=== PATIENT | male | born 1970 | race Caucasian/White ===

== ENCOUNTER → 2018-01-30 | Outpatient (CLI) | payer OTHER | END | disposition home or self-care (01) | LOC: PNCL 09:05 | DX: M48.061 Spinal stenosis, lumbar region without neurogenic claudication (principal); M51.36 Other intervertebral disc degeneration, lumbar region; M79.604 Pain in right leg; M79.605 Pain in left leg; F17.210 Nicotine dependence, cigarettes, uncomplicated | CPT/HCPCS: 99214 ==

== ENCOUNTER → 2018-02-15 | Outpatient (CLI) | payer OTHER ==
[~2018-02-15] MED LIST: IOHEXOL 180 MG/ML 10 ML VIAL.; LIDOCAINE 1% PF 2 ML VIAL.; methylPREDNISolone ACETATE 40 MG/ML VIAL.; methylPREDNISolone ACETATE 80 MG/ML VIAL.
== END | disposition home or self-care (01) ==
LOC: PNCL 10:10
DX: M51.16 Intervertebral disc disorders with radiculopathy, lumbar region (principal); Z88.0 Allergy status to penicillin
CPT/HCPCS: 62323; J1030; J1040; Q9965

== ENCOUNTER → 2018-03-06 | Outpatient (CLI) | payer OTHER | LOC: PNCL 14:08 | DX: M51.16 Intervertebral disc disorders with radiculopathy, lumbar region (principal); M54.5 Low back pain | CPT/HCPCS: 62323; J1030; J1040; Q9965 ==

== ENCOUNTER → 2018-03-20 | Outpatient (CLI) | payer OTHER | LOC: PNCL 13:46 | DX: M51.16 Intervertebral disc disorders with radiculopathy, lumbar region (principal); M48.061 Spinal stenosis, lumbar region without neurogenic claudication; Z88.0 Allergy status to penicillin; F17.210 Nicotine dependence, cigarettes, uncomplicated; Z79.899 Other long term (current) drug therapy | CPT/HCPCS: 62323; J1030; J1040; Q9965 ==

== ENCOUNTER → 2018-04-24 | Outpatient (CLI) | payer OTHER ==
[~2018-04-24] MED LIST changes: +CYCL10TA2 PO; +GABA-585 PO; -IOHEXOL 180 MG/ML 10 ML VIAL.; -LIDOCAINE 1% PF 2 ML VIAL.; +METH-37 PO; -methylPREDNISolone ACETATE 40 MG/ML VIAL.; -methylPREDNISolone ACETATE 80 MG/ML VIAL.
--- NOTE | 2018-04-24 15:48 | PAIN ---
DATE OF SERVICE: 04/24/2018 DIAGNOSES: Lumbar radiculopathy with lumbar degenerative disk disease and lumbar and lumbosacral spondylosis. HISTORY OF PRESENT ILLNESS: The patient is a 47-year-old male who returns for followup status post lumbar epidural steroid injections x 3 with about overall 50% improvement. The patient reports still significant pain; however, in the low back itself. The patient reports pain in his lower extremities now is resolved fairly significantly and he has been quite pleased with his progress thus far, but the pain in his back persists. The patient did have an element of spondylosis in the lumbar spine as well. We discussed this on his last visit. The patient reports that he is doing quite well, though he is increasing his activity with greater ease and comfort, working activities as well as household activities and recreational activities. He has been doing some stretching and strengthening exercises and exercises on a regular basis. The patient reports the pain now is in the low back itself fairly localized and without radiation to the lower extremities. It is aching, dull, shooting, constant, radiating to the hips occasionally, but mostly in the low back itself, worse with extension of the spine, better with forward flexion. The patient reports pain is 6 on a scale of 10 at its worst, 5 on average, 1 at its least, is a 5 today. The patient reports no new motor or sensory deficits. He is sleeping well at night. It does not bother him when he is off his feet or lying down. PHYSICAL EXAMINATION: VITAL SIGNS: The patient's blood pressure 130/87, pulse 78, respirations 18, temperature is 98.2 degrees Fahrenheit, height is 5 feet 9 inches and weight is 185 pounds. GENERAL: The patient is awake, alert, oriented, appropriate, very pleasant demeanor. HEENT: Head is normocephalic, atraumatic. Extraocular movements are intact, symmetrical. The patient wears eyeglasses. Oral cavity: Mucous membranes moist and pink. Dentition is intact. NECK: Shows anterior throat supple without palpable lymphadenopathy noted. Swallow reflex is symmetrical. CHEST: Shows normal on inspection. Breath sounds clear to auscultation bilaterally. HEART: Shows S1, S2 clear. ABDOMEN: Soft, nontender, nondistended. BACK: Shows spine grossly in the midline. Normal appearing thoracic kyphosis and lumbar lordotic curvature. Lumbar paraspinous musculature shows symmetrical on inspection, on palpation some mild tenderness, but only diffusely with palpation bilaterally. The patient has good rotational motion both laterally greater than 10 degrees, right and left as well as extension greater than 10 degrees with some moderate tenderness with extension and axial loading of the lumbar facets, which is fairly significant. The patient decreases the pain with forward flexion at 45 degrees, which is performed without significant difficulty. EXTREMITIES: Lower extremities show deep tendon reflexes at 2+ in the patellar, 1+ tendo calcaneus tendons. Motor exam is strong with 5/5 dorsiflexion, extension, quadriceps and hamstring flexion. Peripheral pulses are 1+ posterior tibial. Options were discussed with the patient. The patient's old chart was reviewed as his current medication regimen and updated. Current review of systems is updated today as well and we will proceed with preauthorization for bilateral lumbar facet joint injections at L4-L5 and L5-S1 as the patient has significant axial loading pain consistent with lumbar facet syndrome bilaterally. The patient will continue to do exercises, strengthening and stretching and maintain his normal exercise routine in the meantime as tolerated and we will wait for preauthorization and have him return for bilateral L4-L5 and L5-S1 facet joint injections. TAMANNA DUMAS MD DR: ZULMA/cruzito JOB#: [id number] / [id number]
== END | disposition home or self-care (01) ==
LOC: PNCL 07:50
PROVIDERS: ATTEND Anesthesiology
DX: M51.16 Intervertebral disc disorders with radiculopathy, lumbar region (principal); M47.897 Other spondylosis, lumbosacral region; F17.210 Nicotine dependence, cigarettes, uncomplicated; Z88.0 Allergy status to penicillin; Z79.899 Other long term (current) drug therapy
CPT/HCPCS: 99212

== ENCOUNTER → 2018-10-14 | Outpatient (CLI) | payer OTHER ==
[~2018-10-14] MED LIST changes: +IOHEXOL 180 MG/ML 10 ML VIAL. ONE; +methylPREDNISolone ACETATE 40 MG/ML VIAL. ONE; +methylPREDNISolone ACETATE 80 MG/ML VIAL. ONE
--- NOTE | 2018-10-14 23:13 | PN ---
DATE: 10/14/2018 PROGRESS NOTE FOR PAIN CLINIC DIAGNOSES: Lumbar degenerative disk disease with lumbar and lumbosacral spondylosis. The patient is a 48-year-old male who returns for followup status post bilateral L4-L5 and L5-S1 facet joint injections on 05/06/2018. The patient did very well with about 90% improvement initially, now still about 50% improvement overall in the low back. The patient reports pain is returning, however in the back itself, worse with extension of the lumbar spine, better with forward flexion, right and left lateral rotation showed some mild tenderness. The patient reports it is worse with walking, standing, changing positions, initially he was doing all of these much better and more easily for about 2 months. The patient reports that the pain is now 6 on a scale of 10 at its worst, 5 on average, 2 at its least and is a 5 today. The patient reports no new motor or sensory deficits, no new bowel or bladder incontinence or other complaints, still has some pain in the mid upper back and reports he has recently [facility], will try and get a report of this as we have no access to this currently. The patient reports otherwise doing well. No new changes. PHYSICAL EXAMINATION: VITAL SIGNS: The patient's blood pressure 146/86, pulse 91, respirations 18, temperature 98.3 degrees Fahrenheit, height is 5 feet 9 inches, weighs 190 pounds. GENERAL: The patient is awake, alert, oriented, appropriate, very pleasant demeanor. HEENT: Head is normocephalic, atraumatic. Extraocular muscles are intact and symmetrical. Oral cavity, mucous membranes are moist and pink. Dentition is intact. NECK: Shows anterior throat supple without palpable lymphadenopathy noted. Swallow reflex is symmetrical. CHEST: Shows normal with inspection. Breath sounds are clear to auscultation bilaterally. HEART: Shows S1, S2 clear. No murmurs auscultated. ABDOMEN: Soft, nontender, nondistended. No palpable organomegaly is noted. No rebound or guarding demonstrated. BACK: Shows spine grossly in the midline. Normal appearing thoracic kyphosis and lumbar lordotic curvature. Lumbar paraspinous muscle shows symmetrical on inspection. Palpation shows some moderate tenderness, but only diffusely without radiation. The patient has good rotational motion of lumbar spine, both laterally greater than 10 degrees right and left with some mild tenderness involved, but only mildly so. The patient's extension of the lumbar spine, however, causes significant tenderness to the point the patient does not want to perform this. Forward flexion is better with decreased pain at 45 degrees without significant disability. EXTREMITIES: The patient's lower extremities show deep tendon reflexes at 2+ in the patellar, 1+ tendo-calcaneus tendons. Motor exam is strong with 5/5 dorsiflexion, extension, quadriceps and hamstring flexion equal and symmetrical. Peripheral pulses are 1+ posterior tibia. No peripheral edema is noted bilaterally. Options were discussed with the patient. The patient's old chart was reviewed. His current medication regimen updated. Current review of systems updated today as well and we will preauthorize the patient for bilateral L4-L5 and L5-S1 facet joint injections as he has done very well with these in the past, again pain is increasing with axial loading of the lumbar spine with extension, better with forward flexion without significant radiation to the lower extremities at this time. The patient will return to clinic in approximately 1 week. We will plan on lumbar bilateral facet joint injections at L4-L5 and L5-S1 levels. He has done very well with these in the past. TAMANNA DUMAS MD DR: ZULMA/cruzito JOB#: [id number] / [id number]
== END | disposition home or self-care (01) ==
LOC: PNCL 11:29
PROVIDERS: ATTEND Anesthesiology
DX: M51.36 Other intervertebral disc degeneration, lumbar region (principal); M47.896 Other spondylosis, lumbar region
CPT/HCPCS: G0463; J1030; J1040; Q9965

== ENCOUNTER → 2018-10-18 | Outpatient (CLI) | payer OTHER ==
[~2018-10-18] MED LIST changes: +BUPIVACAINE MPF 0.25% 10 ML VIAL. ONE
--- NOTE | 2018-10-18 22:15 | PAIN ---
DATE OF SERVICE: 10/18/2018 DIAGNOSES: Lumbar degenerative disk disease, lumbar and lumbosacral spondylosis. HISTORY OF PRESENT ILLNESS: The patient is a 48-year-old male who returns for followup status post lumbar L4-L5 and L5-S1 facet joint injections with very good results in the past, about 90% improvement for the first month following the injections. The patient returns now after preauthorization for additional injections reporting still significant pain in the low back bilaterally, right equal left, essentially worse with standing, walking, sitting for prolonged periods with doing exercise, especially sit ups and running activities. The patient reports the pain is aching, sharp, shooting, becoming more constant, more noticeable in the low back itself. No radiation to the lower extremities at this time. The patient rates his pain is a 6 on a scale 10 at its worst, 5 on average and a 2 at its worst, is a 5 today. The patient reports no new motor or sensory deficits. Feels better with sitting or lying down for short periods of time and does not awaken him from sleep currently. PHYSICAL EXAMINATION: VITAL SIGNS: The patient's blood pressure 118/88, pulse 101, respirations 18, temperature 92.9 degrees Fahrenheit, height is 5 feet 9 inches, weighs 186 pounds. GENERAL: The patient is awake, alert, oriented, appropriate, very pleasant demeanor. HEENT: Shows normocephalic, atraumatic. Extraocular movements are intact and symmetrical. Oral cavity: Mucous membranes moist and pink. Dentition is intact. NECK: Shows anterior throat supple without palpable lymphadenopathy noted. Swallow reflex symmetrical. CHEST: Shows normal on inspection. Breath sounds are clear to auscultation bilaterally. HEART: Shows S1, S2 clear. No murmurs auscultated. ABDOMEN: Soft, nontender, nondistended. No palpable organomegaly is noted. No rebound or guarding demonstrated. BACK: Shows spine grossly in the midline. Normal appearing thoracic kyphosis and lumbar lordotic curvature. Lumbar paraspinous muscle shows symmetrical on inspection. With palpation shows some moderate tenderness diffusely, but without atrophy, hypertrophy, no radiation. The patient has good rotational motion with some moderate tenderness with extension in the low back and not with forward flexion. Lateral rotation shows very mild tenderness in right and left respectively with rotation each direction of the lumbar spine. EXTREMITIES: Lower extremities show deep tendon reflexes 2+ in the patellar, 1+ tendo calcaneus tendons. Motor exam is strong with 5/5 dorsiflexion, extension, quadriceps and hamstring flexion and equal bilaterally. Peripheral pulses are 1+ posterior tibia. No peripheral edema is noted. Options were discussed with the patient. The patient's old chart was reviewed as was his current medication regimen updated. Current review of systems is updated today as well. We will proceed with bilateral L4-L5 and L5-S1 facet joint injections today with fluoroscopic guidance. Risks were again discussed including, but not limited to bleeding, infection, possibility of epidural hematoma and subsequent neurological compromise, dural puncture, headaches, spinal cord and/or nerve damage, side effects of steroid medication and poor results regarding pain control. The patient understands and wished to proceed. The patient will return to the clinic in approximately 2 weeks for followup, was counseled on return appointment, activity level and side effects to be aware of. DIAGNOSIS: Lumbar and lumbosacral spondylosis bilaterally. PROCEDURES: Bilateral L4-L5 and L5-S1 facet joint injections using C-arm fluoroscopic guidance under sterile prep and drape using local anesthetic. MEDICATION INJECTED: A total of 120 mg Depo-Medrol plus total of 4 mL of 0.25% bupivacaine, a total of 2 mL of Isovue for contrast. CONDITION AT DISCHARGE: Stable. The patient tolerated the procedure well, had no complications. TAMANNA DUMAS MD DR: ZULMA/cruzito JOB#: [id number] / [id number]
== END | disposition home or self-care (01) ==
LOC: PNCL 11:24
PROVIDERS: ATTEND Anesthesiology
DX: M47.817 Spondylosis without myelopathy or radiculopathy, lumbosacral region (principal); M51.36 Other intervertebral disc degeneration, lumbar region; Z88.0 Allergy status to penicillin
CPT/HCPCS: 64493; 64494; J1030; J1040; J3490; Q9965

== ENCOUNTER → 2019-04-09 | Outpatient (CLI) | payer OTHER ==
--- NOTE | 2019-04-09 21:48 | PAIN ---
DATE OF SERVICE: 04/09/2019 PROGRESS NOTE FOR PAIN CLINIC DIAGNOSES: Lumbar radiculopathy with lumbar degenerative disk disease and lumbar and lumbosacral spondylosis. HISTORY OF PRESENT ILLNESS: The patient is a 48-year-old male who returns for followup status post bilateral lumbar facet injections, L4-L5 and L5-S1, last seen 10/18/2018. The patient reports he did very well with about a 90% improvement, but the pain began to return after the past month or so. The patient was increased distance walking, doing work activities, household activities and traveling with greater ease and comfort. The patient reports he has been sleeping better at night, does not awaken her from sleep at night. The patient reports his pain in the last week has been about 8 on a scale of 10 at its worst, 6 on average, 3 at its least and is a 6 today. The patient reports an intermittent pain in the lower legs as well, but the main complaint is low back with pain across the low back, but not radiating significantly into the lower extremities at this time. The patient reports it is tingling and sharp, constant, radiating across the low back. The patient reports no new motor or sensory deficits, no new bowel or bladder incontinence or other complaints. PHYSICAL EXAMINATION: VITAL SIGNS: The patient's blood pressure 140/87, pulse 107, respirations 16, temperature 98.1 degrees Fahrenheit, weight is 190 pounds. GENERAL: The patient is awake, alert, oriented, appropriate, very pleasant demeanor. HEENT: Shows normocephalic, atraumatic. Extraocular movements are intact and symmetrical. The patient is wearing eyeglasses. Extraocular movements are intact and symmetrical. Oral cavity: Mucous membranes moist and pink. Dentition is intact. NECK: Shows anterior throat supple without palpable lymphadenopathy noted. Swallow reflex symmetrical. CHEST: Shows normal on inspection. Breath sounds clear to auscultation bilaterally. HEART: Shows S1, S2 clear. No murmurs auscultated. ABDOMEN: Soft, nontender, nondistended. No palpable organomegaly is noted. No rebound or guarding demonstrated. BACK: Shows spine grossly in the midline. Normal appearing thoracic kyphosis and some minor flattening of lumbar lordotic curvature. Lumbar paraspinous muscle shows symmetrical on inspection. On palpation, shows some moderate tenderness diffusely, but only diffusely without radiation. The patient has good rotational motion with some moderate tenderness with right and left lateral rotation greater than 10 degrees, but with extension and axial loading of the lumbar spine shows significant pain in the lumbar spine itself without radiation. This is better and relieved to some extent with forward flexion at 45 degrees, which is performed without difficulty. EXTREMITIES: The patient's lower extremities show deep tendon reflexes 2+ in the patellar, 1+ tendo-calcaneus tendons. Motor exam is 5/5 with dorsiflexion, extension, quadriceps and hamstring flexion equal. Peripheral pulses are 1+ posterior tibia. No peripheral edema is noted. Options were discussed with the patient. The patient's old chart was reviewed as his current medication regimen updated. Current review of systems updated today as well. We will proceed with bilateral L4-L5 and L5-S1 facet joint injections using C-arm fluoroscopic guidance. Risks were again discussed including, but not limited to bleeding, infection, possibility of epidural hematoma, subsequent neurological compromise, dural puncture, headaches, spinal cord and/or nerve damage, side effects of steroid medication and poor results regarding pain control. The patient understands and wished to proceed. The patient will return to clinic in approximately 2 weeks for followup. He was counseled on return appointment, activity level and side effects to be aware of. DIAGNOSES: Lumbar degenerative disk disease and lumbar spondylosis and lumbosacral spondylosis. PROCEDURE: Lumbar L4-L5 and L5-S1 bilateral facet joint injections using C-arm fluoroscopic guidance under sterile prep and drape using local anesthetic. MEDICATION INJECTED: A total of 120 mg Depo-Medrol plus 4 mL of 0.25% bupivacaine and 2 mL of contrast. CONDITION AT DISCHARGE: Stable. The patient tolerated procedure well, had no complications. TAMANNA DUMAS MD DR: ZULMA/cruzito JOB#: [id number] / [id number]
== END ==
LOC: PNCL 13:14
PROVIDERS: ATTEND Anesthesiology
DX: M47.817 Spondylosis without myelopathy or radiculopathy, lumbosacral region (principal); M51.16 Intervertebral disc disorders with radiculopathy, lumbar region
CPT/HCPCS: 64493; 64494; J1030; J1040; J3490; Q9965

== ENCOUNTER → 2019-05-12 | Outpatient (CLI) | payer OTHER ==
--- NOTE | 2019-05-13 00:18 | PAIN ---
DATE OF SERVICE: 05/12/2019 PROGRESS NOTE FOR PAIN CLINIC DIAGNOSES: Lumbar radiculopathy with lumbar degenerative disk disease and lumbar spondylosis. HISTORY OF PRESENT ILLNESS: The patient is a 48-year-old male who returns for followup status post bilateral facet joint injections, most recently seen on 04/09. He did very well with about 85% improvement, although it did not last as long as it usually does. Reports he was very active after the last injections in the next day or two, has been traveling on airplane for a long period of time and reports the pain is still improved, but not as much as usual. The patient reports the pain is in the low back bilaterally, worse with extension of the lumbar spine, standing, walking, changing positions, awakens him from sleep about every 6-7 hours. The patient reports the pain is a 6 on a scale of 10 at its worst, 5 on average, 2 at its least and is a 5 today. The patient reports it is aching, constant, radiating across the low back, but not into the lower extremities. The patient reports no new motor or sensory deficits, no new bowel or bladder incontinence or other complaints. PHYSICAL EXAMINATION: VITAL SIGNS: The patient's blood pressure is 145/88, pulse 96, respirations 16, temperature 98.0 degrees Fahrenheit, weight is 186 pounds. GENERAL: The patient is awake, alert, oriented, appropriate, very pleasant demeanor. HEENT: Head shows normocephalic, atraumatic. Extraocular movements are intact and symmetrical. Oral cavity: Mucous membranes are moist and pink. Dentition is intact. NECK: Shows anterior throat supple without palpable lymphadenopathy noted. Swallow reflex symmetrical. CHEST: Shows normal on inspection. Breath sounds clear to auscultation bilaterally. HEART: Shows S1, S2 clear. No murmurs auscultated. ABDOMEN: Soft, nontender, nondistended. No palpable organomegaly is noted. No rebound or guarding demonstrated. BACK: Shows spine grossly in the midline. The patient's spinous process show no significant tenderness with palpation, but with rotational motion, the patient does show some moderate tenderness bilaterally with lateral rotation greater than 10 degrees right and left as well as extension is significantly greater than 10 degrees but decreased with forward flexion at 45 degrees plus the patellar. EXTREMITIES: Lower extremities show deep tendon reflexes 2+ at the patellar and 1+ tendo-calcaneus tendons are equal. Motor exam is strong with 5/5 dorsiflexion, extension, quadriceps and hamstring flexion and symmetrical. Peripheral pulses are 1+ posterior tibia. No peripheral edema is noted. PLAN: Options were discussed with the patient. The patient's old chart was reviewed as his current medication regimen updated. Current review of systems updated. We will proceed with bilateral L4-L5 and L5-S1 facet joint injections today with fluoroscopic guidance. Risks were discussed including but not limited to bleeding, infection, possibility of epidural hematoma, subsequent neurological compromise, dural puncture, headaches, spinal cord and/or nerve damage, side effects of steroid medication and poor results regarding pain control. The patient understands and wished to proceed. The patient will return to the clinic in approximately 2 weeks for followup. He was counseled as to return appointment, activity level and side effects to be aware of. DIAGNOSIS: Lumbar and lumbosacral spondylosis. PROCEDURE: Lumbar bilateral L4-L5 and L5-S1 facet joint injections using C-arm fluoroscopic guidance under sterile prep and drape using local anesthetic. MEDICATION INJECTED: The patient received a total of 120 mg Depo-Medrol plus total of 4 mL of 0.5% bupivacaine and total of 2 mL of contrast. CONDITION AT DISCHARGE: Stable. The patient tolerated the procedure and had no complications. TAMANNA DUMAS MD DR: ZULMA/cruzito JOB#: [id number] / [id number]
== END ==
LOC: PNCL 14:18
PROVIDERS: ATTEND Anesthesiology
DX: M51.16 Intervertebral disc disorders with radiculopathy, lumbar region (principal); M47.816 Spondylosis without myelopathy or radiculopathy, lumbar region
CPT/HCPCS: 64493; 64494; J1030; J1040; J3490; Q9965

== ENCOUNTER → 2019-12-31 | Outpatient (CLI) | payer OTHER ==
[~2019-12-31] MED LIST changes: -BUPIVACAINE MPF 0.25% 10 ML VIAL. ONE
--- NOTE | 2019-12-31 10:50 | PAIN ---
DATE OF SERVICE: PROGRESS NOTE FOR PAIN CLINIC DIAGNOSES: 1. Lumbar radiculopathy with lumbar degenerative disk disease, lumbar and lumbosacral spondylosis. 2. T7 transverse fracture with thoracic radiculopathy. HISTORY OF PRESENT ILLNESS: The patient is a 49-year-old male who returns for followup status post lumbar facet joint injections, last seen on 05/12/2019. The patient reports he was doing quite well, but fell in July of last year when he was getting ready to get on an airplane, fell on some ice, fell on his left side, had some significant fractures of the left side of the ribs as well as T7 transverse process fracture. The patient reports that he has not had any formal physical therapy since that time as there has been immobility significantly, but is healed for the most part but has significant pain throughout the entire thoracic distribution of the spine and in the lumbar spine as well. The patient rates his pain as 8 on a scale of 10 at its worst over the past week, 5 on average, 3 at its least and is a 5 today. The patient reports it is aching, radiating tight as well as a shooting and burning and stabbing, cramping at times. The patient reports it is better with sitting or lying down; does not awaken him from sleep at night; worse with activity, rotation motion of the lumbar and thoracic spines, extension and flexion, reaching over his head with his arms, and driving a car. The patient reports no new motor or sensory deficits, no bowel or bladder incontinence. PHYSICAL EXAMINATION: VITAL SIGNS: The patient's blood pressure 145/87, pulse 84, respirations 18, temperature 98.6 degrees Fahrenheit, height is 5 feet 9 inches and weight is 197 pounds. GENERAL: The patient is awake, alert, oriented, appropriate, very pleasant demeanor. HEENT: Head shows normocephalic, atraumatic. Extraocular movements are intact and symmetrical. Oral cavity shows mucous membranes moist and pink. Dentition is intact. NECK: Shows anterior throat supple without palpable lymphadenopathy noted. Swallow reflex symmetrical. CHEST: Shows normal on inspection. Breath sounds are clear bilaterally. HEART: Shows S1, S2 clear. No murmurs auscultated. ABDOMEN: Soft, nontender, nondistended. BACK: Shows spine grossly in the midline, normal-appearing cervical lordotic curvature, thoracic kyphotic curvature and lumbar lordotic curvature is slightly flattened. Paraspinous musculature throughout the upper, middle and lower distribution, thoracic paraspinous muscles as well as the upper, middle and lower distribution of the lumbar paraspinous muscles are very firm, very tender even to light touch. The patient withdraws from examining hand and very, very tender bilaterally with some trigger points as well throughout the thoracic and lumbar distributions bilaterally with tender with palpation bilaterally. The patient shows good rotational motion of the thoracic and lumbar spine with some moderate tenderness with extension as well he has left greater than right rotation in the thoracic distribution, but less pain in the lumbar distribution with rotation. EXTREMITIES: The patient's lower extremities show deep tendon reflexes at 2+ in the patellar, 1+ in the tendo-calcaneus tendons. Motor exam is strong with 5/5 dorsiflexion, extension, quadriceps and hamstring flexion. Upper extremities show deep tendon reflexes 2+ biceps and triceps. Announcer strength, bicep and tricep flexion are 5/5 and equal. Peripheral pulses are 2+ radial. Options were discussed with the patient. The patient's old chart was reviewed as his current medication regimen updated. Current review of systems updated today as well and we will proceed with a thoracic epidural steroid injection today with fluoroscopic guidance. Risks were again discussed including, but not limited to bleeding, infection, possibility of epidural hematoma, subsequent neurological compromise, dural puncture, headaches, spinal cord and/or nerve damage, side effects of steroid medication and poor results regarding pain control. The patient understands and wished to proceed. The patient will return to clinic in approximately 2 weeks for followup. She was counseled on return appointment, activity level and side effects to be aware of. DIAGNOSIS: Thoracic radiculopathy. PROCEDURE: Thoracic epidural steroid injection, translaminar approach T7-T8 level using C-arm fluoroscopic guidance under sterile prep and drape using local anesthetic. MEDICATION INJECTED: A total of 120 mg Depo-Medrol plus 10 mL preservative-free normal saline and 2 mL of contrast. CONDITION AT DISCHARGE: Stable. The patient tolerated procedure well, had no complications. The patient also had physical therapy ordered as he is active and [place] we will see if we can give orders for this and he will follow up once these are initiated. TAMANNA DUMAS MD DR: Benita JOB#: [id number] / [id number]
== END | disposition home or self-care (01) ==
LOC: PNCL 09:05
PROVIDERS: ATTEND Anesthesiology
DX: M54.14 Radiculopathy, thoracic region (principal); M51.06 Intervertebral disc disorders with myelopathy, lumbar region; Z98.890 Other specified postprocedural states; Z88.0 Allergy status to penicillin
CPT/HCPCS: 62321; J1030; J1040; Q9965

== ENCOUNTER → 2020-01-14 | Outpatient (CLI) | payer OTHER ==
[~2020-01-14] MED LIST changes: -IOHEXOL 180 MG/ML 10 ML VIAL. ONE; -methylPREDNISolone ACETATE 40 MG/ML VIAL. ONE; -methylPREDNISolone ACETATE 80 MG/ML VIAL. ONE
--- NOTE | 2020-01-14 11:26 | PAIN ---
DATE OF SERVICE: 01/14/2020 PROGRESS NOTE FOR PAIN CLINIC DIAGNOSES: 1. Lumbar radiculopathy with lumbar degenerative disk disease, lumbar and lumbosacral spondylosis. 2. Thoracic radiculopathy with T7 transverse fracture. HISTORY OF PRESENT ILLNESS: The patient is a 49-year-old male who returns for followup status post thoracic epidural steroid injection 12/31/2019. The patient here for his thoracic radiculopathy. The patient reports he did very well with about 40% improvement, still some twitching and spasticity in the area of the mid upper back, but much better than it was. The patient reports no new motor or sensory deficits. The patient reports his main complaint is low back pain, worse with standing, walking, changing positions, sitting for prolonged periods, extension of the lumbar spine and axial loading of the low back. The patient reports it is aching and shooting at times and constant. The patient reports it is a 7 on a scale of 10 at its worst, 5 on average, 3 at its least over the past week and is a 5 today. The patient reports no new motor or sensory deficits, better with sitting or lying down, but only for short periods, sitting for prolonged periods, greater than an hour or so, it does aggravate the pain in the back. No specific radiation to lower extremities at this time. The patient reports it does not awaken her from sleep at night. He is sleeping about 8 hours at a time without significant difficulty. The patient reports no new motor or sensory deficits, no new bowel or bladder incontinence or other complaints, but still taking gabapentin as well as cyclobenzaprine with good decrease in pain with each of these. We discussed increasing the gabapentin to 200 mg as he is only taking 100 at bedtime to see if this may afford some better pain relief as well. The patient reports no other major problems or conditions or concerns at this time. PHYSICAL EXAMINATION: VITAL SIGNS: The patient's blood pressure is 171/77, pulse 82, respirations are 18, temperature is 98.0 degrees Fahrenheit, height is 5 feet 9 inches, weight is 196 pounds. GENERAL: The patient is awake, alert, oriented, appropriate, very pleasant demeanor. HEENT: Shows normocephalic, atraumatic. Extraocular movements are intact and symmetrical. Oral cavity, mucous membranes are moist and pink. Dentition is intact. NECK: Shows anterior throat supple without palpable lymphadenopathy noted. Swallow reflex symmetrical. CHEST: Shows normal on inspection. Breath sounds are clear bilaterally. HEART: Shows S1, S2 clear. No murmurs auscultated. ABDOMEN: Soft, nontender, nondistended. No palpable organomegaly is noted. No rebound or guarding demonstrated. BACK: Shows spine grossly midline. Normal appearing thoracic kyphosis and lumbar lordotic curvature. Thoracic paraspinous muscle shows symmetrical with inspection on palpation shows some mild tenderness, but only diffusely in the mid and upper distribution of the thoracic paraspinous muscles, but without asymmetry. The patient has good rotational motion of lumbar spine as well as midline spine as well with inspection shows symmetrical of the paraspinous musculature on palpation shows some moderate tenderness diffusely in the middle and lower distribution, but only diffusely without radiation, without trigger points, without asymmetry or atrophy or hypertrophy. The patient shows good rotation of motion with some moderate tenderness, more to the right than the left with lateral rotation at 10 degrees with significant pain, increased with extension greater than 10 degrees in the low back, but without radiation to lower extremities, forward flexion 45 degrees shows mild pain, but actually decreased from that of extension and axial loading. EXTREMITIES: Lower extremities show deep tendon reflexes 2+ in the patellar, 1+ tendo-calcaneus tendons. Motor exam is strong with 5/5 dorsiflexion, extension, quadriceps and hamstring flexion and symmetrical. Peripheral pulses are 1+. No peripheral edema bilaterally. Options were discussed with the patient. The patient's old chart was reviewed. His current medication regimen updated. Current review of systems updated today as well. We will preauthorize the patient for lumbar facet joint injections done very well with these in the past, most recent was 04/2019 with about a 75% improvement in the pain at that time. The patient awaits for preauthorization with his insurance provider and return. In the meantime, we will maintain stretching and strength exercises as well as heat and massage applications to the low back as well as the mid back. The patient is awaiting physical therapy to start as well at the [facility] for some upper back treatment with ultrasound and myofascial release as well. The patient will return to clinic in approximately 1 week. We will plan on bilateral L4-L5 and L5-S1 facet joint injections at that time. TAMANNA DUMAS MD DR: Benita JOB#: [id number] / [id number]
== END | disposition home or self-care (01) ==
LOC: PNCL 09:15
PROVIDERS: ATTEND Anesthesiology
DX: M51.16 Intervertebral disc disorders with radiculopathy, lumbar region (principal); M47.27 Other spondylosis with radiculopathy, lumbosacral region; M84.48XA Pathological fracture, other site, initial encounter for fracture
CPT/HCPCS: G0463-25

== ENCOUNTER → 2020-01-21 | Outpatient (CLI) | payer OTHER ==
[~2020-01-21] MED LIST changes: +BUPIVACAINE MPF 0.25% 10 ML VIAL. ONE; +IOHEXOL 180 MG/ML 10 ML VIAL. ONE; +methylPREDNISolone ACETATE 40 MG/ML VIAL. ONE; +methylPREDNISolone ACETATE 80 MG/ML VIAL. ONE
--- NOTE | 2020-01-21 21:14 | PAIN ---
DATE OF SERVICE: 01/21/2020 PROGRESS NOTE FOR PAIN CLINIC DIAGNOSES: 1. Lumbar degenerative disk disease with lumbar and lumbosacral spondylosis. 2. Thoracic compression fracture. HISTORY OF PRESENT ILLNESS: The patient is a 49-year-old male who returns for followup status post evaluation and previous lumbar facet joint injections, most [id number]/2019, patient did very well after these with still good decrease in pain. The patient reports about 40% improvement overall, still pain returning now. On his last visit, we had put in for preauthorization. He has obtained that now for additional injections and would like to proceed with that. He reports still pain in the low back bilaterally, right essentially equal to left, rated an 8 on a scale of 10 at its worst, over the past week 6 on average, 3 at its least and is a 6 today. The patient reports it is worse with walking, standing, changing positions, better with lying down or sitting, but sitting for prolonged periods can exacerbate the pain as well. The patient reports the pain is aching and sharp, shooting, radiating across the back, but not into the lower extremities. The patient reports no new motor or sensory deficits, no new bowel or bladder incontinence or other complaints. PHYSICAL EXAMINATION: VITAL SIGNS: The patient's blood pressure is 146/103, pulse 88, respirations are 18, temperature is 98.2 degrees Fahrenheit, height is 5 feet 9 inches, weight is 196 pounds. GENERAL: The patient is awake, alert, oriented, appropriate, very pleasant demeanor. HEENT: Shows normocephalic, atraumatic. Extraocular movements are intact and symmetrical. Oral cavity: Mucous membranes moist and pink. Dentition is intact. NECK: Shows anterior throat supple without palpable lymphadenopathy noted. Swallow reflex symmetrical. CHEST: Shows normal on inspection. Breath sounds are clear bilaterally. HEART: Shows S1, S2 clear. No murmurs auscultated. ABDOMEN: Soft, nontender, nondistended. No palpable organomegaly is noted. No rebound or guarding demonstrated. BACK: Shows spine grossly in the midline. Normal appearing thoracic kyphosis and minor flattening of lumbar lordotic curvature. Lumbar paraspinous muscle shows symmetrical on inspection, with palpation some moderate tenderness throughout the upper, middle and lower distribution of paraspinous muscles bilaterally, but only diffusely without significant radiation. The patient shows good rotational motion of the lumbar spine, laterally greater than 10 degrees right and left with some moderate tenderness bilaterally, right and left with significant tenderness with extension greater than 10 degrees and axial loading of the lumbar spine. Forward flexion decreases his pain at about 45 degrees, which is performed fully without limitation. EXTREMITIES: Lower extremities show deep tendon reflexes 2+ in the patellar, 1+ tendo-calcaneus tendons. Motor exam is 5/5 with dorsiflexion, extension, quadriceps and hamstring flexion is symmetrical. Peripheral pulses are 1+ posterior tibia. No peripheral edema bilaterally. Options were discussed with the patient. The patient's old chart was reviewed as his current medication regimen updated. Current review of systems updated today as well. We will proceed with bilateral L4-L5 and L5-S1 facet joint injections today with fluoroscopic guidance. Risks were again discussed including, but not limited to bleeding, infection, possibility of epidural hematoma, subsequent neurological compromise, dural puncture, headaches, spinal cord and/or nerve damage, side effects of steroid medication and poor results regarding pain control. The patient understands and wished to proceed. The patient will return to clinic in approximately 2 weeks for followup, was counseled on return appointment, activity level and side effects to be aware of. DIAGNOSIS: Lumbar and lumbosacral spondylosis. PROCEDURE: Bilateral L4-L5 and L5-S1 facet joint injections using C-arm fluoroscopic guidance under sterile prep and drape using local anesthetic. MEDICATION INJECTED: A total of 120 mg Depo-Medrol plus a total of 4 mL of 0.25% bupivacaine, 2 mL of contrast. CONDITION AT DISCHARGE: Stable. The patient tolerated procedure well, had no complications. TAMANNA DUMAS MD DR: ZULMA/cruzito JOB#: [id number] / [id number]
== END | disposition home or self-care (01) ==
LOC: PNCL 13:02
PROVIDERS: ATTEND Anesthesiology
DX: M47.817 Spondylosis without myelopathy or radiculopathy, lumbosacral region (principal); M51.37 Other intervertebral disc degeneration, lumbosacral region; Z79.899 Other long term (current) drug therapy; Z98.890 Other specified postprocedural states
CPT/HCPCS: 64493; 64494; J1030; J1040; J3490; Q9965

== ENCOUNTER → 2020-05-06 | Outpatient (CLI) | payer OTHER ==
[~2020-05-06] MED LIST changes: -BUPIVACAINE MPF 0.25% 10 ML VIAL. ONE; -IOHEXOL 180 MG/ML 10 ML VIAL. ONE; -methylPREDNISolone ACETATE 40 MG/ML VIAL. ONE; -methylPREDNISolone ACETATE 80 MG/ML VIAL. ONE
--- NOTE | 2020-05-06 10:27 | PDOC ---
Progress Note - Pain Clinic Date of Service: DOS: DATE: 05/06/20 TIME: 10:22 Diagnosis: Dx: Low back pain History or Present Illness: HPI: 49-year-old male returns follow-up status post bilateral lumbar facet joint injections most recently January 21, 2020 patient which did very well with this with about a 50 to 80% improvement over time is been waning noted about 30% improvement only. Reports pain in the low back bilaterally right and left essentially equal worse with the extension of the lumbar spine standing changing positions bending stooping repetitive movements patient reports is aching and shooting across the low back not into the lower extremities but in the back itself. Patient ports is a 6 on a scale of 10 is worse with the past week 3 on average to its least is a 3 today. Patient ported is awakening from sleep about every 4-5 hours when he changes positions rolling over from one side to the other. Patient reports no new motor or sensory deficits no new bowel or bladder incontinence or other complaints. Physical Exam: VS: Blood pressure is 130/92 pulse 79 respirations 18 temperature 98.1 F height is 5 feet 9 inches weight is 191 pounds PE: PHYSICAL EXAMINATION: GENERAL: The patient is awake, alert, oriented, appropriate, very pleasant demeanor HEENT: Shows normocephalic, atraumatic. Extraocular movements are intact and symmetrical. Oral cavity: Mucous membranes moist and pink. NECK: Shows anterior throat supple without palpable lymphadenopathy noted. Swallow reflex symmetrical. CHEST: Shows normal on inspection. Breath sounds are clear bilaterally, no rales rhonchi wheezes auscultated. HEART: Shows S1, S2 clear. No murmurs auscultated. ABDOMEN: Soft, nontender, nondistended. No palpable organomegaly is noted. No rebound or guarding demonstrated. BACK: Shows spine grossly in the midline. Normal-appearing cervical lordotic curvature. There is slightly increased thoracic kyphosis, some minor flattening of the lumbar lordotic curvature. Lumbar paraspinous muscles show symmetrical on inspection, on palpation shows some moderate tenderness diffusely throughout the upper, middle and lower distribution of the paraspinous muscles bilaterally and also into the lower thoracic paraspinous musculature, firm and tender, but without specific trigger points, without radiation of pain. The patient has good rotational motion of the lumbar spine, both laterally as well as extension and flexion with moderate pain with extension only bilaterally in the right and left aspect of the low back. This is better with forward flexion at 10 degrees to 45 degrees moderate pain with right and left lateral rotation at 10 degrees as well right equal to left. No tenderness over the spinous processes, sacrum or sacroiliac regions. EXTREMITIES: Lower extremities show deep tendon reflexes 2+ in the patellar and tendo calcaneus tendons. Motor exam is 5 on a scale of 5 with right dorsiflexion, extension, quadriceps and hamstring flexion and 5/5 on the left. Peripheral pulses are 1+ posterior tibial. No peripheral edema is noted bilaterally. Lower extremities are warm and dry to touch, equal in color and appearance. SKIN: Shows warm and dry, good turgor. No edema. No sores, rashes or bruising throughout. Procedure: Procedure: Options were discussed with the patient. Patient will chart reviewed his his current medication regimen updated current review of systems updated today as well. We will preauthorize patient for bilateral L4-5 and L5-S1 radiofrequency ablation. Patient is done quite well with previous facet joint injections at these levels and would like to proceed. Patient also be given new prescription for Flexeril 4 mg every 6 hours as needed spasms. Patient was given instructions will side effects be aware of his medication will follow-up as scheduled Medication Injected: Med Injected: None Condition at Discharge: Condition at Discharge: Condition at discharge is stable TAMANNA DUMAS MD May 06, 2020 10:27
== END | disposition home or self-care (01) ==
LOC: PNCL 09:37
PROVIDERS: ATTEND Anesthesiology
DX: M54.5 Low back pain (principal); Z88.0 Allergy status to penicillin; Z79.899 Other long term (current) drug therapy
CPT/HCPCS: 99212; G0463

== ENCOUNTER → 2020-05-19 | Outpatient (CLI) | payer OTHER ==
[~2020-05-19] MED LIST changes: +BUPIVACAINE MPF 0.25% 10 ML VIAL. ONE; +LIDOCAINE 1% PF 2 ML VIAL. ONE; +LIDOCAINE 2% PF 5 ML VIAL. ONE; +methylPREDNISolone ACETATE 40 MG/ML VIAL. ONE; +methylPREDNISolone ACETATE 80 MG/ML VIAL. ONE
--- NOTE | 2020-05-19 14:39 | PDOC ---
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 T7 compression fracture History or Present Illness: HPI: 49-year-old male returns follow-up status post lumbar medial branch blocks and facet joint injections with good reduction in pain about 80% improvement at its best and most recently performed January 21, 2020 patient reports he is done very well the pain he is returning however and we have discussed radiofrequency a blation with the patient in the past and we decided that we will go ahead with this today as he does have very good results but they seem to be limited even notes a 1 to 2-month limitation still has significant pain in the low back slightly worse on the left than the right but present bilaterally. This is worse with rotational motion of the lumbar spine especially with extension and axial loading of the low back standing from a seated position and vice versa which is her from sleep about every 5-6 hours patient reports her pain is a 6 on scale 10 is worse over the past week 3 on average to its least and is a 3 today. Patient reports is aching and sharp constant at times and radiating across the back but not into the lower extremities patient reports no new motor or sensory deficits no new bowel or bladder incontinence or other complaints. Physical Exam: VS: Pressure is 132/93 pulse 99 respirations 18 temperature 98.3 F height 5 feet 9 inches weight is 187 pounds PE: PHYSICAL EXAMINATION: GENERAL: The patient is awake, alert, oriented, appropriate, very pleasant demeanor HEENT: Shows normocephalic, atraumatic. Extraocular movements are intact and symmetrical. NECK: Shows anterior throat supple without palpable lymphadenopathy noted. Swallow reflex symmetrical. CHEST: Shows normal on inspection. Breath sounds are clear bilaterally. HEART: Shows S1, S2 clear. No murmurs auscultated. ABDOMEN: Soft, nontender, nondistended. No palpable organomegaly is noted. No rebound or guarding demonstrated. BACK: Shows spine grossly in the midline. Normal-appearing cervical lordotic curvature. There is slightly increased thoracic kyphosis, some minor flattening of the lumbar lordotic curvature. Lumbar paraspinous muscles show symmetrical on inspection, on palpation shows some moderate tenderness diffusely throughout the upper, middle and lower distribution of the paraspinous muscles bilaterally without trigger points, without radiation of pain. The patient has good rotational motion of the lumbar spine, both laterally, and with extension and flexion show significant pain with extension as well as right and left lateral rotation moderate pain greater than 10 degrees and greater than 10 degrees extension forward flexion is performed without difficulty at 45 degrees and decreases the pain to some extent. No tenderness over the spinous processes, sacrum or sacroiliac regions. EXTREMITIES: Lower extremities show deep tendon reflexes 2+ in the patellar and tendo calcaneus tendons. Motor exam is 5 on a scale of 5 with right dorsiflexion, extension, quadriceps and hamstring flexion and 5/5 on the left. Peripheral pulses are 1+ posterior tibial. No peripheral edema is noted bilaterally. Lower extremities are warm and dry to touch, equal in color and appearance. SKIN: Shows warm and dry, good turgor. No edema. No sores, rashes or bruising throughout. Procedure: Procedure: Options discussed with the patient. Patient's old chart was reviewed his current medication regimen updated current review of systems updated today as well. Risks were discussed, including ,but not limited to: Bleeding, infection, possibility of epidural hematoma and subsequent neurological compromise, dural puncture, headaches, spinal cord and/or nerve damage, side effects of steroid medication, possible thermal damage from radiofrequency ablation of motor nerves and permanent ischemic damage, and poor results regarding pain control. Patient understands wished to proceed. Patient will return to clinic in approximately 3 weeks for follow-up was counseled as return appointment activity level and side effects to be aware of. Medication Injected: Med Injected: Under sterile prep and drape patient in prone position using C-arm fluoroscopic guidance patient's lumbar spine was visualized in both AP oblique and lateral views using 1% lidocaine to topically anesthetize the areas overlying the L3-4, L4-5 and L5-S1 facet joints at the point of the medial branches. Using a 22- gauge insulated radiofrequency needle with curved tips and stylette, the needles were advanced to contact the region of the facet with the medial branch targets. This was repeated at the L3-4 L4-5 and L5-S1 levels. Stylette is removed and using radiofrequency probe inserted into each needle individually at each level and then motor tested with no motor stimulation of the lower extremity. Patient did have some multifidus musculature contraction in the lumbar spine only but without radiation. At this time 1 cc of 2% lidocaine was then injected in each needle after motor testing but prior to radiofrequency ablation. Needle position was confirmed continuously throughout the radiofrequency ablation with both AP oblique and lateral views at each level. At this time radiofrequency ablation was carried out each level for 60 seconds at 80 C x 2 at each level with the tip of the needle turned 90 degrees after the first 60 seconds and then subsequent 60 seconds of radiofrequency ablation. Once radiofrequency ablation was completed solution containing 0.25% bupivacaine 1 cc and 20 mg Depo-Medrol was injected each level. Needle was then withdrawn. The procedure was repeated for the contralateral side as described as well. Patient had no paresthesias throughout the procedure no radiation of pain into the lower extremities no lower extremity motor response with motor testing bilaterally. Condition at Discharge: Condition at Discharge: Condition at discharge stable patient tolerated the procedure well had no immediate complications. TAMANNA DUMAS MD May 19, 2020 14:39
== END | disposition home or self-care (01) ==
LOC: PNCL 12:58
PROVIDERS: ATTEND Anesthesiology
DX: M51.36 Other intervertebral disc degeneration, lumbar region (principal); M84.48XA Pathological fracture, other site, initial encounter for fracture; M47.816 Spondylosis without myelopathy or radiculopathy, lumbar region; Z88.0 Allergy status to penicillin; Z79.899 Other long term (current) drug therapy
CPT/HCPCS: 64635; 64636; J1030; J1040; J3490

== ENCOUNTER → 2020-06-16 | Outpatient (CLI) | payer OTHER ==
[~2020-06-16] MED LIST changes: -BUPIVACAINE MPF 0.25% 10 ML VIAL. ONE; -LIDOCAINE 1% PF 2 ML VIAL. ONE; -LIDOCAINE 2% PF 5 ML VIAL. ONE; -methylPREDNISolone ACETATE 40 MG/ML VIAL. ONE; -methylPREDNISolone ACETATE 80 MG/ML VIAL. ONE
--- NOTE | 2020-06-16 10:20 | PDOC ---
Progress Note - Pain Clinic Date of Service: DOS: DATE: 06/16/20 TIME: 10:17 Diagnosis: Dx: Lumbar degenerative disc disease with lumbar and lumbosacral spondylosis T7 compression fracture with thoracic radiculopathy History or Present Illness: HPI: 49-year-old male returns follow-up status post radiofrequency ablation bilateral L4-5 and L5-S1 medial branches. Patient reports about 70% improvement overall and is very pleased with his improvement he is reporting he is increasing his activity with greater ease and comfort try with greater ease doing work activities household activities walking greater distances sleeping better at night does not awaken him from sleep. Patient reports he still being careful with his back and with activities but is doing much better and is feeling very well. Patient rates his pain is a 4 on a scale 10 is worst over the past week 2 on average 1 its least is a 2 today patient which is dull aching in the low back with some minor pain in the mid upper back as well. Patient reports no new motor or sensory deficits no new bowel or bladder con's or other complaints. Physical Exam: VS: Signs blood pressure 130/83 pulse 91 respirations 18 temperature 98.1 F height is 5 feet 9 inches weight is 187 pounds PE: PHYSICAL EXAMINATION: GENERAL: The patient is awake, alert, oriented, appropriate, very pleasant demeanor HEENT: Shows normocephalic, atraumatic. Extraocular movements are intact and symmetrical. NECK: Shows anterior throat supple without palpable lymphadenopathy noted. Swallow reflex symmetrical. CHEST: Shows normal on inspection. Breath sounds are clear bilaterally. HEART: Shows S1, S2 clear. No murmurs auscultated. ABDOMEN: Soft, nontender, nondistended. No palpable organomegaly is noted. No rebound or guarding demonstrated. BACK: Shows spine grossly in the midline. Normal-appearing cervical lordotic curvature. There is slightly increased thoracic kyphosis, some minor flattening of the lumbar lordotic curvature. Lumbar paraspinous muscles show symmetrical on inspection, on palpation shows some moderate tenderness diffusely throughout the upper, middle and lower distribution of the paraspinous muscles bilaterally and also into the lower thoracic paraspinous musculature, firm and tender, but without specific trigger points, without radiation of pain. The patient has good rotational motion of the lumbar spine, with only mild pain with extension but much improved over previous exam right and left lateral rotation shows no significant pain in forward flexion shows no significant pain at 45 degrees. No tenderness over the spinous processes, sacrum or sacroiliac regions. EXTREMITIES: Lower extremities show deep tendon reflexes 2+ in the patellar and tendo calcaneus tendons. Motor exam is 5 on a scale of 5 with right dorsiflexion, extension, quadriceps and hamstring flexion and 5/5 on the left. Peripheral pulses are [] posterior tibial. No peripheral edema is noted bilaterally. SKIN: Shows warm and dry, good turgor. No edema. No sores, rashes or bruising throughout. Procedure: Procedure: Options were discussed with the patient. Patient chart was reviewed his his current medication regimen updated current review of systems updated today as well. We will hold on any further procedures at this time as patient is doing quite well after radiofrequency ablation bilateral L4-5 and L5-S1 medial branches. Patient was encouraged to increase activity as tolerated maintain stretching strength exercise as well as heat massage techniques to the upper thoracic distribution. We will follow-up at this time on as-needed basis. Medication Injected: Med Injected: None Condition at Discharge: Condition at Discharge: Condition at discharge is stable. TAMANNA DUMAS MD Jun 16, 2020 10:20
== END ==
LOC: PNCL 10:00
PROVIDERS: ATTEND Anesthesiology
DX: M47.816 Spondylosis without myelopathy or radiculopathy, lumbar region (principal); M47.817 Spondylosis without myelopathy or radiculopathy, lumbosacral region; M51.36 Other intervertebral disc degeneration, lumbar region; M54.14 Radiculopathy, thoracic region; Z88.0 Allergy status to penicillin; Z79.899 Other long term (current) drug therapy
CPT/HCPCS: 99212; G0463

== ENCOUNTER → 2020-08-06 | Outpatient (CLI) | payer OTHER ==
[~2020-08-06] MED LIST changes: +TIZA4TAB2 PO
--- NOTE | 2020-08-06 08:22 | PDOC ---
Progress Note - Pain Clinic Date of Service: DOS: DATE: 08/06/20 TIME: 08:17 Diagnosis: Dx: Lumbar radiculopathy with lumbar degenerative disc disease and lumbar spondylosis and lumbosacral spondylosis T7 compression fracture with thoracic radiculopathy History or Present Illness: HPI: 50-year-old male returns for follow-up status post radiofrequency ablation bilateral L4-5 L5-S1 medial facet branches with very good results about 70% improvement patient reports pain still doing well in the low back his main complaint is lower thoracic pain with radiating pain into the inferior rib margins more on the left but present bilaterally patient ports an 8 on scale 10 is worse over the past week 6 on average to its least is a 6 today patient reports is aching sharp shooting radiating on and off in intensity worse with activity standing walking for prolonged periods or being on his feet most of his day is waking her from sleep about every 4 hours patient reports the low back however still doing well but this is more in the mid back and lower rib cages. Patient reports no new injuries no new bowel or bladder incontinence or other complaints. Physical Exam: VS: Blood pressure is 126/80 pulse 78 respirations are 16 temperature is 90.5 F height is 5 feet 9 inches weight is 196 pounds PE: PHYSICAL EXAMINATION: GENERAL: The patient is awake, alert, oriented, appropriate, very pleasant demeanor HEENT: Shows normocephalic, atraumatic. Extraocular movements are intact and symmetrical. NECK: Shows anterior throat supple without palpable lymphadenopathy noted. Swallow reflex symmetrical. CHEST: Shows normal on inspection. Breath sounds are clear bilaterally, no rales rhonchi wheezes auscultated. HEART: Shows S1, S2 clear. No murmurs auscultated. ABDOMEN: Soft, nontender, nondistended, obese. No palpable organomegaly is noted. No rebound or guarding demonstrated. BACK: Shows spine grossly in the midline. Normal-appearing cervical lordotic curvature. There is slightly increased thoracic kyphosis, some minor flattening of the lumbar lordotic curvature. Thoracic paraspinous muscle shows very firm very tender throughout the middle and lower distribution thoracic paraspinous musculature bilaterally very hot and tender significantly with palpation even moderate palpation but without specific trigger points and without asymmetry. Patient shows good rotation of motion both laterally as well as extension and forward flexion without significant increase in pain with any of these rotational motions. Lumbar paraspinous muscles show symmetrical on inspection, on palpation shows some moderate tenderness diffusely throughout the upper, middle and lower distribution of the paraspinous muscles bilaterally, but without specific trigger points, without radiation of pain. The patient has good rotational motion of the lumbar spine, both laterally as well as extension and flexion without significant difficulty. No tenderness over the spinous processes, sacrum or sacroiliac regions. EXTREMITIES: Lower extremities show deep tendon reflexes 2+ in the patellar and tendo calcaneus tendons. Motor exam is 5 on a scale of 5 with right dorsiflexion, extension, quadriceps and hamstring flexion and 5/5 on the left. Peripheral pulses are 1+ posterior tibial. No peripheral edema is noted bilaterally. Lower extremities are warm and dry to touch, equal in color and appearance. SKIN: Shows warm and dry, good turgor. No edema. No sores, rashes or bruising throughout. Procedure: Procedure: Options were discussed with the patient. Patient's old chart was reviewed as his current medication regimen updated and current review of systems updated today as well. We will preauthorize patient for additional lumbar facet injections if necessary in the future also we will try Medrol Dosepak at this time with instructions side effects be aware of discussed with the medication. Patient does have thoracic MRI scheduled to be performed later this month and will await results of that as well. We encourage patient to do more stretching strength exercise also heat application which does decrease the pain to moderate extent as we wait for MRI scan results to rule out any further pathology causing radicular pain, and assessment of previous thoracic compression fracture. Medication Injected: Med Injected: None Condition at Discharge: Condition at Discharge: Condition at discharge is stable. TAMANNA DUMAS MD Aug 06, 2020 08:22
== END | disposition home or self-care (01) ==
LOC: PNCL 07:33
PROVIDERS: ATTEND Anesthesiology
DX: M51.16 Intervertebral disc disorders with radiculopathy, lumbar region (principal); M47.27 Other spondylosis with radiculopathy, lumbosacral region; S22.069A Unspecified fracture of T7-T8 vertebra, initial encounter for closed fracture; Z88.0 Allergy status to penicillin; Z79.899 Other long term (current) drug therapy; X58.XXXA Exposure to other specified factors, initial encounter; Y93.89 Activity, other specified; Y92.89 Other specified places as the place of occurrence of the external cause; Y99.8 Other external cause status
CPT/HCPCS: 99212; G0463

== ENCOUNTER → 2020-08-16 | Outpatient (CLI) | payer OTHER ==
--- NOTE | 2020-08-16 16:47 | KCIC ---
MRI of the thoracic spine without contrast 08/16/2020 CLINICAL HISTORY: Mid back pain for one year. TECHNIQUE: Unenhanced T1-weighted, T2-weighted and inversion recovery sagittal and T1-weighted and T2 -weighted axial images of the thoracic spine were obtained. FINDINGS: Very mild S-shaped curvature of the thoracolumbar spine is seen. Degenerative signal change s are seen involving all of the disks of the thoracic spine. Degenerative signal changes are seen wit hin the marrow surrounding these discs. The thoracic spinal cord is normal morphology, position, and signal characteristics. On the axial images throughout the thoracic disc spaces, degenerative changes are seen consisting of minimal to mild generalized disc bulges, small superimposed focal disc protrusions which measure 2 to 3 mm in AP diameter and degenerative changes involving the facet joints. These findings do not resul t in significant central spinal canal or neural foraminal stenosis at any level. IMPRESSION: Degenerative changes are seen involving the thoracic spine as outlined above. These findi ngs do not result in significant central spinal canal or neural foraminal stenosis at any level. Electronically signed by: Sebastian English MD (08/16/2020 4:44 PM) [id number]
== END ==
LOC: KCIC MRI 12:48
PROVIDERS: ATTEND Clinical Nurse Specialist Family Health
DX: M47.814 Spondylosis without myelopathy or radiculopathy, thoracic region (principal)
CPT/HCPCS: 72146

== ENCOUNTER → 2020-11-17 | Outpatient (CLI) | payer OTHER ==
[~2020-11-17] MED LIST changes: +ACET500T68 PO
--- NOTE | 2020-11-17 09:49 | PDOC ---
Progress Note - Pain Clinic Date of Service: DOS: DATE: 11/17/20 TIME: 09:44 Diagnosis: Dx: Lumbar degenerative disc disease with lumbar and lumbosacral spondylosis Myofascial pain Headaches History or Present Illness: HPI: 50-year-old male returns follow-up status post radiofrequency ablation lumbar L4-5 and L5-S1 facet medial branches May 19, 2020. Patient had followed up in May and again in July 2020 doing fairly well but the pain was about 70% improved but only for about 6 to 8 weeks after the radiofrequency ablation. Patient reports now pain is returning and we had gotten some MRI scans of the thoracic spine on his last visit he does have some significant thoracic pain which shows degenerative changes throughout the thoracic spine without significant central spinal canal or neuroforaminal stenosis at any level. Patient reports still significant pain base the neck upper back which mid back low back bilaterally without radiation to the extremities patient reports his pain is 8 on scale 10 is worse over the past week 6 on average 4 to sleep and is a 6 today. Patient reports its tingling and sharp and shooting he relates an episode about 2 weeks ago involving disorientation at home but his believes his eyes were dilated and he had some difficulty with balance and went to the emergency department for stroke work-up which was negative. Patient reports has not had an episode similar to that since that time or before it. Patient reports no new motor or sensory deficits no bowel or bladder incontinence Physical Exam: VS: Blood pressure 135/83 pulse 81 respirations are 16 temperature is 98.1 F weight is 193 pounds PE: PHYSICAL EXAMINATION: GENERAL: The patient is awake, alert, oriented, appropriate, very pleasant demeanor HEENT: Shows normocephalic, atraumatic. Extraocular movements are intact and symmetrical. Oral cavity: Mucous membranes moist and pink. Dentition is intact. NECK: Shows anterior throat supple without palpable lymphadenopathy noted. Swallow reflex symmetrical. CHEST: Shows normal on inspection. Breath sounds are clear bilaterally, no rales bilaterally. HEART: Shows S1, S2 clear. No murmurs auscultated. ABDOMEN: Soft, nontender, nondistended. No palpable organomegaly is noted. BACK: Shows spine grossly in the midline. Normal-appearing cervical lordotic curvature. Cervical paraspinous muscles show symmetrical inspection with palpation some moderate tenderness diffusely throughout the upper middle lower decrease the paraspinous muscles. Patient shows full rotation motion cervical spine both laterally as well as extension flexion without significant increase in pain. There is slightly increased thoracic kyphosis, some minor flattening of the lumbar lordotic curvature. Thoracic paraspinous muscles show symmetrical with inspection on palpation some significant tenderness and firm musculature in the mid thoracic distribution as well as the inferior aspect bilaterally but without trigger points without atrophy hypertrophy without asymmetry. Lumbar paraspinous muscles show symmetrical on inspection, on palpation shows some moderate tenderness diffusely throughout the upper, middle and lower distribution of the paraspinous muscles without specific trigger points, without radiation of pain. The patient has good rotational motion of the lumbar spine, both laterally as well as extension and flexion with some moderate tenderness with extension of the lumbar spine and axial loading as well as right and left lateral rotation of the lumbar spine but without radiation. EXTREMITIES: Lower extremities show deep tendon reflexes 2+ in the patellar and tendo calcaneus tendons. Motor exam is 5 on a scale of 5 with right dorsiflexion, extension, quadriceps and hamstring flexion and 5/5 on the left. Peripheral pulses are 1 posterior tibial. No peripheral edema is noted bilaterally. Lower extremities are warm and dry to touch, equal in color and appearance. SKIN: Shows warm and dry, good turgor. No edema. No sores, rashes or bruising throughout. Procedure: Procedure: Options were discussed with the patient. Patient will chart reviews his current medication regimen updated current review of systems updated today as well. We will await patient's neurological evaluation which is upcoming, discussed potential reinjection of the lumbar facets to determine if further radiofrequency may be helpful. Also discussed physical therapies and especially lumbar traction which I feel may be very beneficial to the lumbar pain. Patient will follow up in approximately 3 weeks as scheduled we will plan on potential facet medial branch blocks at that time. Medication Injected: Med Injected: None Condition at Discharge: Condition at Discharge: Condition at discharge is stable. TAMANNA DUMAS MD Nov 17, 2020 09:49
--- NOTE | 2020-11-17 12:40 | PDOC ---
Date of Service: DATE: 11/17/20 TIME: 12:33 Progress Note: Addendum for patient Williams Flores, date of 1970 Addendum for [facility] [employer] preintegrated disability evaluation system Mr. Flores has been a patient of mine starting January 2018. Patient currently carries working diagnoses of: Lumbar radiculopathy, lumbar degenerative disc disease, lumbar and lumbosacral spondylosis, myofascial pain syndromelumbar thoracic and cervical I have been asked by the patient to opine regarding ability to perform requirements outlined by [facility]. I do not believe the patient is able to function and posterior environment without ready access to medical care. With patient's current conditions he will be unable to perform a maximal effort 1.5 mile run 1.2 mile walk or maximal effort push-ups for 1 minutes or sit ups for 1 minute. Patient is unable to perform duties for prolonged period estimated at 12 hours or longer, or perform heavy physical work in any capacity even over short periods is unable to carry a 40 pound weight, is unable to run 100 yards, unable to wear or use a Kevlar or other weighted helmet and unable to tolerate wearing of weighted body armor. Patient may be able to tolerate respiratory protective mask and chemical biological traction garments if they are very light construction. Regarding patient's prognosis, with continued treatment he has reasonable prognosis to return to daily activities, including nonstrenuous or physically demanding activities, and not currently including those which are currently required of him by the [facility] as outlined above. Justifications for Admission Other Justification TAMANNA DUMAS MD Nov 17, 2020 12:40
== END | disposition home or self-care (01) ==
LOC: PNCL 08:46
PROVIDERS: ATTEND Anesthesiology
DX: M51.36 Other intervertebral disc degeneration, lumbar region (principal); M47.817 Spondylosis without myelopathy or radiculopathy, lumbosacral region; M79.18 Myalgia, other site; R51.9 Headache, unspecified; Z79.899 Other long term (current) drug therapy; Z88.0 Allergy status to penicillin
CPT/HCPCS: 99212; G0463

== ENCOUNTER → 2020-12-08 | Outpatient (CLI) | payer OTHER ==
[~2020-12-08] MED LIST changes: +BUPIVACAINE MPF 0.25% 10 ML VIAL. ONE; +DULO30CA2 PO; +IOHEXOL 180 MG/ML 10 ML VIAL. ONE; +methylPREDNISolone ACETATE 40 MG/ML VIAL. ONE; +methylPREDNISolone ACETATE 80 MG/ML VIAL. ONE
--- NOTE | 2020-12-08 09:27 | PDOC ---
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 Patient did very well for several months following the procedure. But the pain is returning now over the past 6 weeks or so in the low back and the bilateral aspect of the low back radiating across but not into the lower extremities. Patient reports some pain in the mid back as well but mostly in the low back itself with walking standing changing positions he is sleeping better recently has been recently started on Cymbalta about 1 week ago reports he is sleeping much better after this patient reports pain is across the low back described as aching and dull tingling sometimes constant with standing walking repetitive motions or standing from a seated position. Better with sitting or lying down patient reports is a 6 on scale 10 is worse over the past week for an average to its least is a 4 today. Patient reports no new motor or sensory deficits noted , no bladder incontinence or other complaints. Physical Exam: VS: Blood pressure is 147/84 pulse 97 respirations 18 temperature 98.0 F height is 5 feet 9 inches weight is 194 pounds PE: PHYSICAL EXAMINATION: GENERAL: The patient is awake, alert, oriented, appropriate, very pleasant demeanor HEENT: Shows normocephalic, atraumatic. Extraocular movements are intact and symmetrical. Oral cavity: Mucous membranes moist and pink. Dentition is intact. NECK: Shows anterior throat supple without palpable lymphadenopathy noted. Swallow reflex symmetrical. CHEST: Shows normal on inspection. Breath sounds are clear bilaterally. HEART: Shows S1, S2 clear. No murmurs auscultated. ABDOMEN: Soft, nontender, nondistended, obese. No palpable organomegaly is no gale. No rebound or guarding demonstrated. BACK: Shows spine grossly in the midline. Normal-appearing cervical lordotic curvature. There is slightly increased thoracic kyphosis, some minor flattening of the lumbar lordotic curvature. Lumbar paraspinous muscles show symmetrical on inspection, on palpation shows some moderate tenderness diffusely throughout the upper, middle and lower distribution of the paraspinous muscles, but without specific trigger points, without radiation of pain. The patient has good rotational motion of the lumbar spine, both laterally as well as extension and flexion, with significant pain with increased extension and axial loading of the lumbar spine but better with forward flexion 45 degrees. Right and left lateral rotation is performed at 10 degrees easily right and left with some moderate pain more right to left but without radiation. EXTREMITIES: Lower extremities show deep tendon reflexes 2+ in the patellar and tendo calcaneus tendons. Motor exam is 5 on a scale of 5 with right dorsiflexion, extension, quadriceps and hamstring flexion and 5/5 on the left. Peripheral pulses are 1+ posterior tibial. No peripheral edema is noted bilaterally. Lower extremities are warm and dry to touch, equal in color and appearance. SKIN: Shows warm and dry, good turgor. No edema. No sores, rashes or bruising throughout. Procedure: Procedure: Options were discussed with the patient. Patient chart reviews her current medication regimen updated current review of systems updated today as well. We will proceed with a bilateral L4-5 and L5-S1 facet injections today with fluoroscopic guidance. Risks were discussed including but not limited to: Bleeding, infection, possibility of epidural hematoma and subsequent neurological compromise, dural puncture, headaches, spinal cord and/or nerve damage, side effects of steroid medication, and poor results regarding pain control. Patient understands and wished to proceed. Patient will return to the clinic in approximate 2 weeks for follow-up, was counseled as to return appointment activity level and side effects to be aware of. Medication Injected: Med Injected: Under sterile prep and drape using C-arm fluoroscopic guidance AP and lateral and oblique views, bilateral L4-5 and L5-S1 facet joint injections were performed, medications injected: 120 mg Depo-Medrol +4 cc 0.25% bupivacaine +2 cc contrast. Condition at discharge stable patient tolerated the procedure well and no complications. Condition at Discharge: Condition at Discharge: Condition at discharge is stable, patient already procedure well and had no complications. TAMANNA DUMAS MD Dec 08, 2020 09:27
--- NOTE | 2020-12-08 09:28 | PDOC4 ---
PROCEDURE Procedure Patient was consented for bilateral L4-5 and L5-S1 facet injections. Risks were discussed including but not limited to: Bleeding, infection, possibility of epidural hematoma and subsequent neurological compromise, dural puncture, headaches, spinal cord and/or nerve damage, side effects of steroid medication, and poor results regarding pain control. Patient understands and wished to proceed. Under sterile prep and drape using C-arm fluoroscopic guidance AP and lateral and oblique views, bilateral L4-5 and L5-S1 facet joint injections were performed, medications injected: 120 mg Depo-Medrol +4 cc 0.25% bupivacaine +2 cc contrast. Condition at discharge stable patient tolerated the procedure well and no complications. TAMANNA DMUAS MD Dec 08, 2020 09:28
== END | disposition home or self-care (01) ==
LOC: PNCL 08:47
PROVIDERS: ATTEND Anesthesiology
DX: M51.36 Other intervertebral disc degeneration, lumbar region (principal); M47.817 Spondylosis without myelopathy or radiculopathy, lumbosacral region; M54.14 Radiculopathy, thoracic region; Z79.899 Other long term (current) drug therapy; Z88.0 Allergy status to penicillin
CPT/HCPCS: 64493; 64494; J1030; J1040; J3490; Q9965

== ENCOUNTER → 2021-07-13 | Outpatient (CLI) | payer OTHER ==
[~2021-07-13] MED LIST changes: -BUPIVACAINE MPF 0.25% 10 ML VIAL. ONE; +CYCL10TA19 PO; -CYCL10TA2 PO; -IOHEXOL 180 MG/ML 10 ML VIAL. ONE; +TIZA-75 PO; -TIZA4TAB2 PO; -methylPREDNISolone ACETATE 40 MG/ML VIAL. ONE; -methylPREDNISolone ACETATE 80 MG/ML VIAL. ONE
--- NOTE | 2021-07-13 08:58 | PDOC ---
Progress Note - Pain Clinic Date of Service: DOS: DATE: 07/13/21 TIME: 08:55 Diagnosis: Dx: Lumbar radiculopathy with lumbar degenerative disease lumbar and lumbosacral spondylosis History or Present Illness: HPI: 51-year-old male returns for follow-up last seen December 08, 2020 patient underwent lumbar bilateral L4-5 and L5-S1 facet joint medial branch blocks. Patient reports about 70% improvement for several months throughout the summer he did very well with increased activity greater ease and comfort doing work activities household activities traveling greater ease distance walking sleeping better at night patient reports over the past for 5 weeks the pain peaks. Return after gluing some boxes and lifting and bending frequently but is not back to baseline patient reports still significantly improved but pain in the low back itself without radiation to lower extremities patient ports is worse with repetitive motions rotation right and left as well as extension and forward flexion with exacerbation of pain patient reports no radiation to the legs describes the pain in the back is aching and sharp can be constant rated a 7 on scale 10 is worst average and a 40s least and is a 7 today. Patient reports awakening from sleep once again but only very infrequently patient reports no loss of motor function no bowel or bladder incontinence. Physical Exam: VS: Blood pressure is 131/69 pulse 77 respirations 18 temperature 98.2 F height is 5 feet 9 inches weight is 186 pounds PE: PHYSICAL EXAMINATION: GENERAL: The patient is awake, alert, oriented, appropriate, very pleasant in demeanor HEENT: Shows normocephalic, atraumatic. Extraocular movements are intact and symmetrical. Oral cavity: Mucous membranes moist and pink. Dentition is intact. NECK: Shows anterior throat supple without palpable lymphadenopathy noted. Swallow reflex symmetrical. CHEST: Shows normal on inspection. Breath sounds are clear bilaterally, distant no rales or rhonchi. HEART: Shows S1, S2 clear. No murmurs auscultated. ABDOMEN: Soft, nontender, nondistended. No palpable organomegaly is noted. BACK: Shows spine grossly in the midline. Normal-appearing cervical lordotic curvature. There is slightly increased thoracic kyphosis, some minor flattening of the lumbar lordotic curvature. Lumbar paraspinous muscles show symmetrical on inspection, on palpation shows some moderate tenderness diffusely throughout the upper, middle and lower distribution of the paraspinous muscles without specific trigger points, without radiation of pain. The patient has good rotational motion of the lumbar spine, both laterally as well as extension and flexion with moderate tenderness with extension and forward flexion performed fully at 10 degrees and 45 degrees respectively, right and left lateral rotation shows moderate tenderness bilaterally equal right and left. No tenderness over the spinous processes, sacrum or sacroiliac regions. EXTREMITIES: Lower extremities show deep tendon reflexes 2+ in the patellar and tendo calcaneus tendons. Motor exam is 5 on a scale of 5 with right dorsiflexion, extension, quadriceps and hamstring flexion and 5/5 on the left. Peripheral pulses are 1+ posterior tibial. No peripheral edema is noted bilaterally. Lower extremities are warm and dry to touch, equal in color and appearance. SKIN: Shows warm and dry, good turgor. No edema. No sores, rashes or bruising throughout. Procedure: Procedure: Options discussed with the patient. Patient chart was reviewed his current medication regimen updated current review of systems updated today as well. We will preauthorize patient for bilateral L4-5 and L5-S1 medial branch facet blocks with fluoroscopic guidance. Patient return to clinic in approximately 1 week for procedure, in the meantime will maintain stretching and strengthening exercises as well as heat application to the low back as necessary. Medication Injected: Med Injected: None Condition at Discharge: Condition at Discharge: Condition at discharge is stable. TAMANNA DUMAS MD Jul 13, 2021 08:58
== END | disposition home or self-care (01) ==
LOC: PNCL 08:33
PROVIDERS: ATTEND Anesthesiology
DX: M51.16 Intervertebral disc disorders with radiculopathy, lumbar region (principal); M47.27 Other spondylosis with radiculopathy, lumbosacral region; Z79.899 Other long term (current) drug therapy; Z88.0 Allergy status to penicillin
CPT/HCPCS: 99212; G0463

== ENCOUNTER → 2021-07-25 | Outpatient (CLI) | payer OTHER ==
[~2021-07-25] MED LIST changes: +BUPIVACAINE MPF 0.25% 10 ML VIAL. ONE; +IOHEXOL 180 MG/ML 10 ML VIAL. ONE; +methylPREDNISolone ACETATE 40 MG/ML VIAL. ONE; +methylPREDNISolone ACETATE 80 MG/ML VIAL. ONE
--- NOTE | 2021-07-25 12:34 | PDOC ---
Progress Note - Pain Clinic Date of Service: DOS: DATE: 07/25/21 TIME: 12:30 Diagnosis: Dx: Lumbar and lumbosacral spondylosis Lumbar degenerative disc disease History or Present Illness: HPI: 51-year-old male returns status post lumbar facet medial branch blocks with ab out 70% improvement most recently on December 08, 2020 pain returning now in the low back bilaterally slightly worse on the left than right but present in both sides of the low back worse with walking standing change positions sitting for prolonged periods getting up from seated position patient reports he had near undersign improvement after the last injection the pain began to return a few weeks back patient reports is now across the low back is slightly worse on the left than the right patient rates as a 6 on scale 10 is worse over the past week for an average to its least is a 2 today patient what is aching sharp can be constant as well. Patient reports better with sitting or laying down generally does not awaken him from sleep at night. Patient reports no bowel or bladder incontinence. Physical Exam: VS: Blood pressure is 126/68 pulse 98 respirations are 18 temperature 90.1 F height is 5 foot 9 inches weight is 191 pounds. PE: PHYSICAL EXAMINATION: GENERAL: The patient is awake, alert, oriented, appropriate, very pleasant in demeanor, patient accompanied by his spouse HEENT: Shows normocephalic, atraumatic. Extraocular movements are intact and symmetrical. Oral cavity: Mucous membranes moist and pink. Dentition is intact. NECK: Shows anterior throat supple without palpable lymphadenopathy noted. Swallow reflex symmetrical. CHEST: Shows normal on inspection. Breath sounds are clear bilaterally, distant no rales or rhonchi. HEART: Shows S1, S2 clear. No murmurs auscultated. ABDOMEN: Soft, nontender, nondistended. No palpable organomegaly is noted. BACK: Shows spine grossly in the midline. Normal-appearing cervical lordotic curvature. There is slightly increased thoracic kyphosis, some minor flattening of the lumbar lordotic curvature. Lumbar paraspinous muscles show symmetrical on inspection, on palpation shows some moderate tenderness diffusely throughout the upper, middle and lower distribution of the paraspinous muscles without specific trigger points, without radiation of pain. The patient has good rotational motion of the lumbar spine, both laterally as well as extension and flexion with moderate tenderness in the low back with extension especially and axial loading but better with forward flexion 45 degrees, right and left lateral rotation elicits moderate pain on the left and mild pain on the right with rotation but without radiation. No tenderness over the spinous processes, sacrum or sacroiliac regions. EXTREMITIES: Lower extremities show deep tendon reflexes 2+ in the patellar and tendo calcaneus tendons. Motor exam is 5 on a scale of 5 with right dorsiflex ion, extension, quadriceps and hamstring flexion and 5/5 on the left. Peripheral pulses are 1+ posterior tibial. No peripheral edema is noted bilaterally. Lower extremities are warm and dry to touch, equal in color and appearance. SKIN: Shows warm and dry, good turgor. No edema. No sores, rashes or bruising throughout. Procedure: Procedure: Options discussed with patient. Patient chart reviewed his current medication regimen updated current review of systems updated today as well. We will proceed with bilateral L4-5 and L5-S1 medial branch facet block today with fluoroscopic guidance. Risks were discussed including but not limited to: Bleeding, infection, possibility of epidural hematoma and subsequent neurological compromise, dural puncture, headaches, spinal cord and/or nerve damage, side effects of steroid medication, and poor results regarding pain control. Patient understands and wished to proceed. Patient will return to clinic in approximately 4 weeks for follow-up, was counseled as return appointment, activity level, and side effect to be aware of. Medication Injected: Med Injected: Under sterile prep and drape using C-arm fluoroscopic guidance AP and lateral and oblique views, bilateral L4-5 and L5-S1 facet joint MB's injections were performed, using quinke needles with stylette's x4,, medications injected: 120 mg Depo-Medrol +4 cc 0.25% bupivacaine +2 cc contrast. Condition at discharge stable patient tolerated the procedure well and no complications. Condition at Discharge: Condition at Discharge: Condition at discharge stable, patient tolerated procedure well and had no complications. TAMANNA DUMAS MD Jul 25, 2021 12:34
--- NOTE | 2021-07-25 12:34 | PDOC4 ---
Procedure Note: ICD 10 Code: ICD 10 Code: M4 7.816 M4 7.17 M51.36 Procedure Note: Patient was consented for bilateral L4-5 and L5-S1 medial branch facet blocks with fluoroscopic guidance. Risks were discussed including but not limited to: Bleeding, infection, possibility of epidural hematoma and subsequent neurologi lester compromise, dural puncture, headaches, spinal cord and/or nerve damage, side effects of steroid medication, and poor results regarding pain control. Patient understands and wished to proceed. Under sterile prep and drape using C-arm fluoroscopic guidance AP and lateral and oblique views, bilateral L4-5 and L5-S1 facet joint MB's injections were performed, using quinke needles with stylette's x4,, medications injected: 120 mg Depo-Medrol +4 cc 0.25% bupivacaine +2 cc contrast. Condition at discharge stable patient tolerated the procedure well and no complications. TAMANNA DUMAS MD Jul 25, 2021 12:34
== END | disposition home or self-care (01) ==
LOC: PNCL 11:27
PROVIDERS: ATTEND Anesthesiology
DX: M47.817 Spondylosis without myelopathy or radiculopathy, lumbosacral region (principal); M51.36 Other intervertebral disc degeneration, lumbar region; M47.816 Spondylosis without myelopathy or radiculopathy, lumbar region; Z79.899 Other long term (current) drug therapy; Z88.0 Allergy status to penicillin
CPT/HCPCS: 64493; 64494; J1030; J1040; J3490; Q9965

== ENCOUNTER → 2021-11-15 | Outpatient (CLI) | payer OTHER ==
[~2021-11-15] MED LIST changes: +DEXAMETHASONE PRES.FREE 10 MG/ML VIAL. ONE; -methylPREDNISolone ACETATE 40 MG/ML VIAL. ONE; -methylPREDNISolone ACETATE 80 MG/ML VIAL. ONE
--- NOTE | 2021-11-15 10:22 | PDOC4 ---
Procedure Note: ICD 10 Code: ICD 10 Code: M4 7.816 M4 7.817 Procedure Note: Patient was consented for bilateral lumbar facet medial branch blocks with fluoroscopic guidance. Risks were discussed including but not limited to: Bleeding, infection, possibility of epidural hematoma and subsequent neurological compromise, dural puncture, headaches, spinal cord and/or nerve damage, side effects of steroid medication, and poor results regarding pain control. Patient understands and wished to proceed. Under sterile prep and drape using C-arm fluoroscopic guidance AP and lateral and oblique views, bilateral L4-5 and L5-S1 facet joint MB's injections were performed, using quinke needles with stylette's x4,, medications injected: 20 mg dexamethasone +4 cc 0.25% bupivacaine +2 cc contrast. Condition at discharge stable patient tolerated the procedure well and no complications. TAMNANA DUMAS MD Nov 15, 2021 10:22
--- NOTE | 2021-11-15 10:22 | PDOC ---
Progress Note - Pain Clinic Date of Service: DOS: DATE: 11/15/21 TIME: 10:17 Diagnosis: Dx: Lumbar and lumbosacral spondylosis Lumbar degenerative disc disease History or Present Illness: HPI: 51-year-old male returns last seen July 25, 2021 status post previous radio frequency ablation as well as medial branch facet blocks patient did very well after his last injections with about 80% improvement initially now about 50% improvement after the first month patient reports the pain is still significant but is still fairly well-controlled although is returning patient also reports some pain the base of the neck more on the left side than the right which is worse at night but comes and goes and is decreased significantly with the use of Tylenol and stretching. We discussed this in detail and I feel that is probably positional with how he is reading or using his laptop computer. Patient will keep a stretching and strengthening with this as well as oral analgesics see if this may resolve if not we did discuss potential diagnostic imaging for the cervical spine in the future. Patient regarding his low back has significant pain right slightly more than the left worse with walking standing change positions getting up from seated position standing for prolonged periods walking for prolonged periods better with laying down but can be exacerbated with sitting for more than about 1 hour. Patient reports no loss of motor function currently no radiation to the lower extremities. Patient rates his pain a 7 on scale 10 is worse over the past week 6 on average 3 at its least, and is a 6 today, patient describes that it is aching and sharp stabbing can be constant as well and severe at times with activity. Patient reports no bowel or bladder incontinence. Physical Exam: VS: Blood pressure is 133/93 pulse 76 respirations 18 temperature is 98.1 F height 5 feet 9 inches weight is 193 pounds. PE: PHYSICAL EXAMINATION: GENERAL: The patient is awake, alert, oriented, appropriate, very pleasant in demeanor HEENT: Shows normocephalic, atraumatic. Extraocular movements are intact and symmetrical. Patient wearing eyeglasses. Oral cavity: Mucous membranes moist and pink. Dentition is intact. NECK: Shows anterior throat supple without palpable lymphadenopathy noted. Swallow reflex symmetrical. CHEST: Shows normal on inspection. Breath sounds are clear bilaterally. HEART: Shows S1, S2 clear. No murmurs auscultated. ABDOMEN: Soft, nontender, nondistended. No palpable organomegaly is noted. BACK: Shows spine grossly in the midline. Normal-appearing cervical lordotic curvature. There is slightly increased thoracic kyphosis, some minor flattening of the lumbar lordotic curvature. Lumbar paraspinous muscles show symmetrical on inspection, on palpation shows some moder 5 ate tenderness diffusely throughout the upper, middle and lower distribution of the paraspinous muscles without specific trigger points, without radiation of pain. The patient has good rotational motion of the lumbar spine, both laterally as well as extension and flexion with moderate pain with extension bilaterally worse with right lateral rotation and extension better with forward flexion 45 degrees which is performed fully. No tenderness over the spinous processes, sacrum or sacroiliac regions. EXTREMITIES: Lower extremities show deep tendon reflexes 2+ in the patellar and tendo calcaneus tendons. Motor exam is 5 on a scale of 5 with right dorsiflexion, extension, quadriceps and hamstring flexion and 5/5 on the left. Peripheral pulses are 1+ posterior tibial. No peripheral edema is noted bilaterally. Lower extremities are warm and dry to touch, equal in color and appearance. SKIN: Shows warm and dry, good turgor. No edema. No sores, rashes or bruising throughout. Procedure: Procedure: Options were discussed with the patient. Patient's old heart was viewed as cu rrent medication regimen updated current review of systems updated today as well. We will proceed with bilateral L4-5 and L5-S1 medial branch facet blocks today with fluoroscopic guidance. Risks were discussed including but not limited to: Bleeding, infection, possibility of epidural hematoma and subsequent neurological compromise, dural puncture, headaches, spinal cord and/or nerve damage, side effects of steroid medication, and poor results regarding pain control. Patient understands and wished to proceed. Patient will return to the clinic in approximately 4 weeks for follow-up, was counseled as to return appointment, activity level, and side effect to be aware of. Medication Injected: Med Injected: Under sterile prep and drape using C-arm fluoroscopic guidance AP and lateral and oblique views, bilateral L4-5 and L5-S1 facet joint MB's injections were performed, using quinke needles with stylette's x4,, medications injected: 20 mg dexamethasone +4 cc 0.25% bupivacaine +2 cc contrast. Condition at discharge stable patient tolerated the procedure well and no complications. Condition at Discharge: Condition at Discharge: Condition at discharge stable, patient tolerated the procedure well and had no complications. TAMANNA DUMAS MD Nov 15, 2021 10:22
== END | disposition home or self-care (01) ==
LOC: PNCL 09:16
PROVIDERS: ATTEND Anesthesiology
DX: M47.816 Spondylosis without myelopathy or radiculopathy, lumbar region (principal); M47.817 Spondylosis without myelopathy or radiculopathy, lumbosacral region; Z79.899 Other long term (current) drug therapy; Z88.0 Allergy status to penicillin
CPT/HCPCS: 64493; 64494; J1100; J3490; Q9965

== ENCOUNTER → 2021-12-28 | Outpatient (CLI) | payer OTHER ==
[~2021-12-28] MED LIST changes: -BUPIVACAINE MPF 0.25% 10 ML VIAL. ONE; -DEXAMETHASONE PRES.FREE 10 MG/ML VIAL. ONE; -IOHEXOL 180 MG/ML 10 ML VIAL. ONE
--- NOTE | 2021-12-28 09:54 | PDOC ---
Progress Note - [facility] Clinic Date of Service: DOS: DATE: 12/28/21 TIME: 09:48 Diagnosis: Dx: Lumbar lumbosacral spondylosis, lumbar degenerative disc disease T7 compression fracture Bilateral occipital neuralgia History or Present Illness: HPI: 51-year-old male returns status post bilateral L4-5 and L5-S1 facet medial branch blocks. Patient reports doing very well about 80% improvement after the injections and now waning to benefit percent improvement overall still doing very well over the past 2 months or so patient reports that his chief complaint today however is posterior occipital pain bilaterally right essentially equal to left with headaches posteriorly and into the temporal region as far as into some of the parietal region as well bilaterally patient reports to be going on now for about a month not result of any specific injury or accident that he is aware of again increased pain with radiating and stress with significant headaches in this distribution nothing into the neck or the shoulders patient reports pain is a 7 on scale 10 is worst 6 on average 3 to [place] is a 3 today better with rest and not reading and generally does not awaken her from sleep at night. Patient reports is aching and sharp on and off in intensity again worse with stress and reading with a head in a flexed position. Physical Exam: VS: Blood pressure is 120/73 pulse 74 respirations 18 temperature 98.2 patient is 5 feet 9 inches weight is 200 pounds. PE: PHYSICAL EXAMINATION: GENERAL: The patient is awake, alert, oriented, appropriate, very pleasant in demeanor, patient companied by his spouse. HEENT: Shows normocephalic, atraumatic. Extraocular movements are intact and symmetrical. Patient wearing eyeglasses. Oral cavity: Mucous membranes moist and pink. Dentition is intact. Moderate tenderness with palpation of the nuchal ridge between the mastoid and the posterior occipital protuberance more tender on the left than the right but significantly tender without obvious abnormalities in the musculature this is true into the occipital posteriorly as well as the temporal regions with mild tenderness diffusely throughout bilaterally but without radiation. No asymmetry no obvious muscular hypertrophy is noted bilaterally. NECK: Shows anterior throat supple without palpable lymphadenopathy noted. Swallow reflex symmetrical. CHEST: Shows normal on inspection. Breath sounds are clear bilaterally. HEART: Shows S1, S2 clear. No murmurs auscultated. ABDOMEN: Soft, nontender, nondistended. No palpable organomegaly is noted. BACK: Shows spine grossly in the midline. Normal-appearing cervical lordotic curvature. There is slightly increased thoracic kyphosis, some minor flattening of the lumbar lordotic curvature. Lumbar paraspinous muscles show symmetrical on inspection, on palpation shows some moderate tenderness diffusely throughout the upper, middle and lower distribution of the paraspinous muscles without specific trigger points, without radiation of pain. The patient has good rotational motion of the lumbar spine, both laterally as well as extension and flexion with moderate tenderness with extension and axial loading lumbar spine but only moderately so right equal to left also right and left lateral rotation past 10 degrees moderately tender but only to a mild extent no tenderness with forward flexion was performed fully at 45 degrees without difficulty. EXTREMITIES: Lower extremities show deep tendon reflexes 2+ in the patellar and tendo calcaneus tendons. Motor exam is 5 on a scale of 5 with right dorsiflexion, extension, quadriceps and hamstring flexion and 5/5 on the left. Peripheral pulses are 1+ posterior tibial. No peripheral edema is noted bilaterally. Lower extremities are warm and dry to touch, equal in color and appearance. SKIN: Shows warm and dry, good turgor. No edema. No sores, rashes or bruising throughout. Procedure: Procedure: Options discussed with patient. Patient's old chart was reviewed. Medication regimen updated current review of systems updated today as well. We will preauthorize patient for a bilateral greater and lesser occipital nerve blocks patient has significant occipital neuralgia symptoms bilaterally. Patient continue with stretching and strength exercises meantime as well as oral analgesics as currently. Once approved, patient will return for bilateral greater and lesser occipital nerve blocks. Medication Injected: Med Injected: None Condition at Discharge: Condition at Discharge: Condition at discharge is stable. TAMANNA DUMAS MD December 28, 2021 09:53
== END | disposition home or self-care (01) ==
LOC: PNCL 08:40
PROVIDERS: ATTEND Anesthesiology
DX: M47.817 Spondylosis without myelopathy or radiculopathy, lumbosacral region (principal); M51.36 Other intervertebral disc degeneration, lumbar region; M54.81 Occipital neuralgia; Z79.899 Other long term (current) drug therapy; Z88.0 Allergy status to penicillin
CPT/HCPCS: 99212; G0463